=== PATIENT | female | born 1990 | race Caucasian/White ===

== ENCOUNTER 2018-04-22 15:28 | Emergency (ER) | payer OTHER ==
[2018-04-22 16:52] LABS: HIV (1/2) Antibody/Antigen Non-Reactive (NonReactive); HIV 1/2 INDEX 0.15 S/CO (<1.00); Hep C IgG Ab Non-Reactive (NonReactive); Hep C Index 0.17 S/CO (0-0.79)
[2018-04-22 17:59] LABS: Hep B Surf AB Reactive (NonReactive)
[2018-04-22 18:00] LABS: HBSAB Concentration 3201.95 mIU/mL
== END 2018-04-22 16:23 | disposition home or self-care (01) ==
LOC: ERS 15:28
DX: S91.332A Puncture wound without foreign body, left foot, initial encounter (principal); W26.8XXA Contact with other sharp object(s), not elsewhere classified, initial encounter
CPT/HCPCS: 36415; 86706; 86803; 87389; 99283

== ENCOUNTER 2020-07-03 10:26 | Outpatient (CLI) | payer OTHER ==
[2020-07-04 13:24] LABS: SARS-CoV-2 MS2 Positive; SARS-CoV-2 N Gene Negative; SARS-CoV-2 S Gene Negative; SARS-CoV-2 by NAA Not Detected (NotDetected); SARS-CoV-2 orf1ab Negative
== END 2020-07-03 10:27 | disposition home or self-care (01) ==
LOC: LABSCS 10:26
PROVIDERS: ATTEND Obstetrics & Gynecology
DX: Z20.828 Contact with and (suspected) exposure to other viral communicable diseases (principal)
CPT/HCPCS: 87635; U0003

== ENCOUNTER 2020-07-06 19:15 | Inpatient (IN) | payer OTHER ==
[~2020-07-06 19:15] MED LIST: Bupivacaine/Epinephrine 0.25% 30 ML VIAL ONE
[2020-07-06 23:13] VITALS: BMI 29.1
[2020-07-06] MEDS ORDERED: Carboprost 250 MCG/ML AMP IM PRN (23:15)
[2020-07-06] MEDS ORDERED: Misoprostol 200 MCG TAB RC PRN (23:15)
[2020-07-06] MEDS ORDERED: NS w/ Oxytocin 10 units 500 ML IV SCH ×2 (23:15)
[2020-07-06] MEDS ORDERED: Lidocaine 1% (PF) 30 ML VIAL SC PRN (23:15)
[2020-07-06] MEDS ORDERED: Misoprostol 100 MCG TAB VAG SCH (23:15)
[2020-07-06] MEDS ORDERED: Ibuprofen 800 MG TAB PO PRN (23:15)
[2020-07-06] MEDS ORDERED: NS / Oxytocin 40 units/1000ml 1,000 ML IV SCH (23:15)
[2020-07-06] MEDS ORDERED: Methylergonovine 0.2 MG/ML VIAL IM PRN (23:15)
[2020-07-06] MEDS ORDERED: Promethazine HCl 25 MG/ML VIAL IM PRN (23:30)
[2020-07-06] MEDS ORDERED: Ondansetron PF 4 MG/2 ML Vial IVP PRN (23:30)
[2020-07-06] MEDS ORDERED: Acetaminophen 500 MG TAB PO PRN (23:30)
[2020-07-06] MEDS ORDERED: Butorphanol Tartrate 1 MG/ML VIAL SLOW IVP PRN (23:30)
[2020-07-06] MEDS ORDERED: hydrALAZINE 20 MG/ML VIAL SLOW IVP PRN (23:30)
[2020-07-06] MEDS: Lactated Ringer's 1,000 ML IV SCH (23:41)
[2020-07-06 23:58] LABS: Hemoglobin 12.2 g/dL (12.0-16.0); Mean Corpuscular HGB CONC 34.8 g/dL (32.0-36.0); Mean Corpuscular Hemoglobin 30.1 pg (27.0-31.0); Mean Corpuscular Volume 86.6 fL (78.0-98.0); Mean Platelet Volume 9.5 fL (7.4-10.4); Platelet Count 171 thou/uL (130-400); RBC Distribution Width 12.5 % (11.5-14.5); Red Blood Cell (RBC) Count 4.05 mill/uL (4.20-5.40); White Blood Cell (WBC) Count 11.5 thou/uL (4.8-10.8)
[2020-07-07 00:32] LABS: Hep B Surf Ag Non-Reactive S/CO (NonReactive); Syphilis Antibody Nonreactive (Nonreactive); Syphilis Antibody Index 0.13 S/CO (<1.00 Non-Reactive)
[2020-07-07] MEDS: Lactated Ringer's 1,000 ML IV SCH (06:34)
[2020-07-07] MEDS ORDERED: Fentanyl 4 mcg/Bup 0.1% Cadd 100 ML ONE (10:30)
[2020-07-07] MEDS ORDERED: diphenhydrAMINE 50 MG/ML VIAL IVP PRN (10:58)
[2020-07-07] MEDS ORDERED: Lactated Ringer's 500 ML IV PRN (10:58)
[2020-07-07] MEDS ORDERED: Naloxone HCl 0.4 mg/ml Vial IVP PRN ×2 (10:58)
[2020-07-07] MEDS ORDERED: Promethazine HCl 25 MG/ML VIAL IM PRN ×2 (10:58→16:15)
[2020-07-07] MEDS ORDERED: Ondansetron PF 4 MG/2 ML Vial IVP PRN ×2 (10:58→16:15)
[2020-07-07] MEDS ORDERED: Acetaminophen 325 MG TAB PO PRN (10:58)
[2020-07-07] MEDS ORDERED: EPHEDRINE 25 MG/5 ML SYRINGE SLOW IVP PRN (10:58)
[2020-07-07] MEDS ORDERED: Communication Order-Pharmacy FS SCH (11:00)
[2020-07-07] MEDS ORDERED: Fentanyl 4 mcg/Bupivacaine 0.1% Cassette 100 ML EPIDURAL SCH (11:00)
[2020-07-07] MEDS ORDERED: Zolpidem Tartrate 5 MG TAB PO PRN (16:15)
[2020-07-07] MEDS ORDERED: HYDROcodone/Acetaminophen 5/325 mg Tablet PO PRN ×4 (16:15→20:29)
[2020-07-07] MEDS ORDERED: Measles/Mumps/Rubella 10 MCG/0.5 ML VIAL SC SCH (16:15)
[2020-07-07] MEDS ORDERED: diphenhydrAMINE 25 MG CAP PO PRN ×2 (16:15→20:29)
[2020-07-07] MEDS ORDERED: Lanolin Ointment 7 GM TUBE TOP PRN ×2 (16:15→20:29)
[2020-07-07] MEDS ORDERED: Benzocaine-Menthol 82.5 ML CAN TOP PRN ×2 (16:15→20:29)
[2020-07-07] MEDS ORDERED: Bisacodyl 10 MG SUPP PR PRN ×2 (16:15→20:29)
[2020-07-07] MEDS ORDERED: Adacel (T-DAP) 0.5 ML SYRINGE IM SCH (16:15)
[2020-07-07] MEDS ORDERED: Milk Of Magnesia 30 ML UDCUP PO PRN ×2 (16:15→20:29)
[2020-07-07] MEDS ORDERED: Ferrous Sulfate 325 MG TAB PO SCH ×2 (17:00→21:00)
[2020-07-07] MEDS ORDERED: hydrALAZINE 20 MG/ML VIAL SLOW IVP PRN (20:29)
[2020-07-07] MEDS ORDERED: Docusate Calcium (SURFAK) 240 MG CAP PO SCH (21:00)
[2020-07-07] MEDS ORDERED: NS / Oxytocin 40 units/1000ml 1,000 ML IV SCH (21:00)
[2020-07-07] MEDS: Ibuprofen 800 MG TAB PO SCH (21:35)
[2020-07-07] MEDS: Docusate Calcium (SURFAK) 240 MG CAP PO SCH (21:36)
[2020-07-07] MEDS ORDERED: Ibuprofen 800 MG TAB PO SCH (22:00)
[2020-07-08] MEDS: Ibuprofen 800 MG TAB PO SCH ×3 (05:52→21:30)
[2020-07-08 05:56] LABS: Hemoglobin 11.1 g/dL (12.0-16.0); Mean Corpuscular HGB CONC 34.4 g/dL (32.0-36.0); Mean Corpuscular Volume 87.2 fL (78.0-98.0); Mean Platelet Volume 9.3 fL (7.4-10.4); Platelet Count 142 thou/uL (130-400); RBC Distribution Width 12.6 % (11.5-14.5); Red Blood Cell (RBC) Count 3.69 mill/uL (4.20-5.40)
[2020-07-08] MEDS: Ferrous Sulfate 325 MG TAB PO SCH ×2 (08:54→15:36)
[2020-07-08] MEDS: Docusate Calcium (SURFAK) 240 MG CAP PO SCH ×2 (08:57→21:31)
[2020-07-08] MEDS: Prenatal Vitamin 1 TAB PO SCH (08:57)
[2020-07-08] MEDS ORDERED: Adacel (T-DAP) 0.5 ML SYRINGE IM ONE (09:00)
[2020-07-08] MEDS: Lactated Ringer's 1,000 ML IV SCH (15:37)
[2020-07-09] MEDS: Ibuprofen 800 MG TAB PO SCH (05:55)
[2020-07-09] MEDS: Docusate Calcium (SURFAK) 240 MG CAP PO SCH (09:48)
[2020-07-09] MEDS: Prenatal Vitamin 1 TAB PO SCH (09:48)
[2020-07-09] MEDS: Ferrous Sulfate 325 MG TAB PO SCH (09:49)
[2020-07-09 10:06] VITALS: BP 112/62; TEMP 98.4
== END 2020-07-09 11:55 | disposition home or self-care (01) | DRG 807 ==
LOC: L&D 22:27 → 3SE 07-07 20:26 → 3SW 07-08 13:46
PROVIDERS: ADMIT Obstetrics & Gynecology; ATTEND Obstetrics & Gynecology
PROC: 10E0XZZ Delivery of Products of Conception, External Approach (ICD-10-PCS; principal; 2020-07-06)
PROC: 0HQ9XZZ Repair Perineum Skin, External Approach (ICD-10-PCS; 2020-07-06)
PROC: 3E033VJ Introduction of Other Hormone into Peripheral Vein, Percutaneous Approach (ICD-10-PCS; 2020-07-06)
DX: O70.0 First degree perineal laceration during delivery (principal); Z37.0 Single live birth; Z3A.39 39 weeks gestation of pregnancy
CPT/HCPCS: 36415; 51702; 85027; 86780; 86850; 86900; 86901; 87340; 87635; 90715; J2590; U0003